=== PATIENT | female | born 1960 | race American Indian/Alaskan Native ===

== ENCOUNTER 2017-05-28 07:39 | Day surgery (SDC) | payer OTHER ==
[2017-05-28 08:12] VITALS: BMI 33.4
[2017-05-28] MEDS ORDERED: Midazolam 2 MG/2 ML VIAL ONE (10:23)
[2017-05-28] MEDS ORDERED: Propofol 10 mg/ml Inj (20 ML) ONE (10:23)
--- NOTE | 2017-05-28 10:32 | CP.SDSHP ---
Same Day Surgery H & P - History Proposed Procedure: screening colonoscopy Pre-Op Diagnosis: screening for colon cancer - Previous Medical/Surgical History Endocrine/Metabolic: Thyroid Disease, Obesity, Other (Thyroid cancer 2006) Previous Surgical History: QAMAR. Thyroidectomy - Allergies Allergies: Allergies No Known Allergies Allergy (Verified 07/31/16 12:16) - Physical Exam Vital Signs: Vital Signs 05/28/17 08:20 Temperature 96.4 F L Pulse Rate 69 Respiratory 20 Rate Blood Pressure 130/56 L O2 Sat by Pulse 99 Oximetry Mental Status: Alert & Oriented x3 Neuro: WNL Heart: WNL Lungs: WNL GI: WNL - Impression Impression: screening for colon cancer Pt. Evaluated Today:Candidate for Anesthesia & Procedure: Yes - Date & Time Date: 05/28/17 Time: 10:32 Short Stay Discharge - Short Stay Discharge Admitting Diagnosis/Reason for Visit: ENCOUNTER FOR SCREENING FOR MALIGNANT NEOPLASM OF Disposition: HOME/ ROUTINE
[2017-05-28 11:17] VITALS: TEMP 96.8; O2SAT 100
[2017-05-28 12:02] VITALS: RESP 12
[2017-05-28 12:25] VITALS: BP 124/62; PULSE 52
== END 2017-05-28 12:07 | disposition home or self-care (01) ==
LOC: C.ENDO 07:39
PROVIDERS: ATTEND Internal Medicine Gastroenterology
DX: Z12.11 Encounter for screening for malignant neoplasm of colon (principal); Z85.850 Personal history of malignant neoplasm of thyroid; E66.9 Obesity, unspecified; E89.0 Postprocedural hypothyroidism; K57.30 Diverticulosis of large intestine without perforation or abscess without bleeding; K64.8 Other hemorrhoids; Z68.33 Body mass index [BMI] 33.0-33.9, adult; D12.7 Benign neoplasm of rectosigmoid junction
CPT/HCPCS: 45380; 88305; J2250; J2704; J3010

== ENCOUNTER 2017-10-18 09:12 | Emergency (ER) | payer OTHER ==
[2017-10-18 09:13] VITALS: BMI 33.4
[2017-10-18 09:30] VITALS: BP 151/85; RESP 18; O2SAT 100
[2017-10-18] MEDS ORDERED: Aluminum Hydroxide/Magnesium Hydroxide Susp (30 mL) PO STA (09:46)
[2017-10-18] MEDS ORDERED: Alum-Mag Hydrox-Simethicone Susp (30 mL) ONE (09:51)
--- NOTE | 2017-10-18 09:51 | C.PDOC ---
History Of Present Illness 57 year old female presents to the ER with a complaint of recurring sore throat for the past 6 days. Patient states the initialy onset was 2 weeks ago, she took amoxillin 500mg BID 6 weeks ago and her symptoms resolved but recurred the next day. She states the pain is constant to her lower throat and is not associated with swallowing. Patient notes she is able to eat and drink with out difficulty but the pain is worse in the morning. Denies abdominal pain, nausea, vomiting, fever, or weight loss. Patient has a Hx of thyroid cancer s/p thyroidectomy. RECUR SORE THROAT X 6 DAYS. INITIAL ONSET 2 WEEKS AGO, TOOK AMOXIL 500 MG BID X 6 DAYS. SX RESOLVED, BUT RECURRED NEXT DAY. LOWER THROAT, CONSTANT NO ASSOC W SWALLOWING. PS ABLE TO EAT/DRINK WO DIFF. WORSE IN MORNING. NO ABD PAIN, NV, FEVER, WT LOSS. HO THYROID CA S/P THYROIDECTOMY EXAM NAD NONTOXIC HEENT PHARYNX CLEAR, NO SWELL ERYTYEMA EXUDATE; UVULA MIDLINE; NO STRIDOR, DROOL NECK SUPPLE NO MASS, PALP NODES, SWELL REMAINDER NEG MDM NO SIGNS PHARYNGITIS. NARD. POSSIBLE ESOPHAGEAL PAIN, GERD? Time Seen by Provider: 10/18/17 09:40 Chief Complaint (Nursing): ENT Problem History Per: Patient History/Exam Limitations: no limitations Onset/Duration Of Symptoms: Days Current Symptoms Are (Timing): Still Present Location Of Pain: Throat Sick Contacts (Context): None Associated Symptoms: Sore Throat. denies: Fever, Nausea, Vomiting, Diarrhea, Other (Abdominal pain, Weight loss) Ear Symptoms: Bilateral: None Recent travel outside of the [place]: No Past Medical History Reviewed: Historical Data, Nursing Documentation, Vital Signs Vital Signs: Last Vital Signs Temp 98.3 F 10/18/17 09:27 Pulse 61 10/18/17 09:27 Resp 18 10/18/17 09:27 BP 151/85 H 10/18/17 09:27 Pulse Ox 100 10/18/17 10:20 - Medical History PMH: Hypothyroidism Surgical History: No Surg Hx Family History: States: Unknown Family Hx - Social History Hx Tobacco Use: No Hx Alcohol Use: No Hx Substance Use: No Review Of Systems Except As Marked, All Systems Reviewed And Found Negative. Constitutional: Negative for: Fever, Chills, Weight loss ENT: Positive for: Throat Pain Gastrointestinal: Negative for: Nausea, Vomiting, Abdominal Pain Physical Exam - Physical Exam Appears: Non-toxic, No Acute Distress Skin: Normal Color, Warm, Dry Head: Atraumatic, Normacephalic Eye(s): bilateral: Normal Inspection Ear(s): Bilateral: Normal Nose: Normal Oral Mucosa: Moist, No Drooling Throat: Normal, No Erythema, No Exudate, Other (No swelling, uvula midline) Neck: Normal, Supple, Other (No masses or palpable nodes) Chest: Symmetrical, No Tenderness Cardiovascular: Rhythm Regular Respiratory: Normal Breath Sounds, No Rales, No Rhonchi, No Stridor, No Wheezing Extremity: Normal ROM (x4) Neurological/Psych: Oriented x3, Normal Speech ED Course And Treatment ECG: Interpreted By Me, Viewed By Me ECG Rhythm: Sinus Bradycardia ECG Interpretation: Normal Rate From EC O2 Sat by Pulse Oximetry: 100 (Room air) Pulse Ox Interpretation: Normal Progress - Re-Evaluation Re-evaluation Note: 10/18/17 1000 PT NOW STATES ASSOC W "HEART AREA FEELING FUNNY" X 1 WEEK. AREA MID CHEST CONSTANT W THROAT PAIN, NONEXERTIONAL. NO DIZZY, SOB/RIDLEY. 10/18/17 10:17 FEELS BETTER S/P LIDOCAINE/MAALOX. ADVISED DIET MOD, ANTACIDS, GI FU - Data Reviewed Data Reviewed: EKG Medical Decision Making Medical Decision Making: NO SIGNS PHARYNGITIS. NARD. POSSIBLE ESOPHAGEAL PAIN, GERD? Disposition Counseled Patient/Family Regarding: Studies Performed, Diagnosis, Need For Followup - Disposition Referrals: Alex Long MD [Staff Provider] - Disposition: HOME/ ROUTINE Disposition Time: 10:18 Condition: IMPROVED Additional Instructions: TAKE PEPCID AND PRILOSEC DIRECTED X 4 WEEKS. 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 I have reviewed the chart and agree that the record accurately reflects my personal performance of the history, physical exam, medical decision making, and the department course for this patient. I have also personally directed, reviewed, and agree with the discharge instructions and disposition.
[2017-10-18 10:38] VITALS: PULSE 59; TEMP 98
== END 2017-10-18 10:36 | disposition home or self-care (01) ==
LOC: C.ER 09:12
DX: R07.0 Pain in throat (principal)